=== PATIENT | male | born 1960 | race Caucasian/White ===

== ENCOUNTER → 2016-06-27 | Outpatient (CLI) | payer OTHER ==
--- NOTE | 2016-06-27 16:23 | CT ---
EXAM DESCRIPTION: Abdomen/Pelvis w/wo Contrast CLINICAL HISTORY: HERNIA COMPARISON: None. TECHNIQUE: Transaxial images were obtained post menstruation of intravenous contrast medium without oral contrast media. Sagittal and coronal reconstruction was performed. FINDINGS: The lung bases are clear. The liver and spleen are normal. No biliary ductal dilatation is observed. The gallbladder is normal in appearance. No adrenal masses are detected. The pancreas is normal in appearance. Imaging of the kidneys reveals no evidence of hydronephrosis mass or calcification. Minimal lobulation is observed in both kidneys. No cysts are detected. A small ventral hernia is observed in the epigastrium containing fat. No inguinal region abnormality is seen. No free fluid is observed. The exam reveals an ostomy in the left lower quadrant. There is bowel herniated through the ostomy site into the subcutaneous tissues. No bowel compromise is observed. No retroperitoneal adenopathy is detected. The appendix is identified and is normal in appearance. A compression fracture of L1 is observed with some retropulsed fragments. Injury appears older in nature. IMPRESSION: 1. Herniation of bowel through ostomy site is observed in the left lower quadrant without evidence of bowel compromise. 2. A small ventral hernia is observed in the epigastrium and contains fat. 3. A compression fracture of L1 is observed appears older in nature. Electronically signed by: Jens Joseph MD 06/27/2016 4:22 PM [employer]
== END | disposition home or self-care (01) ==
LOC: RAD 12:22
DX: K46.9 Unspecified abdominal hernia without obstruction or gangrene (principal)

== ENCOUNTER → 2016-07-07 | Outpatient (CLI) | payer OTHER | END | disposition home or self-care (01) | LOC: YCFC.O 12:26 | PROVIDERS: ATTEND Urology | DX: R89.9 Unspecified abnormal finding in specimens from other organs, systems and tissues (principal) ==

== ENCOUNTER → 2016-07-14 | Outpatient (CLI) | payer OTHER ==
--- NOTE | 2016-07-15 07:56 | RAD ---
Study: Frontal and Lateral Views of the Chest. Indication: RULE OUT TB R76.11 Comparison: July 09, 2015. Impression: Heart size normal. Emphysema. Otherwise, lungs clear. No acute osseous abnormality. Electronically signed by: Anthony Fernandes MD 07/15/2016 7:54 AM CDT
== END | disposition home or self-care (01) ==
LOC: RAD 15:14
DX: R76.11 Nonspecific reaction to tuberculin skin test without active tuberculosis (principal)